=== PATIENT | male | born 2000 | race Caucasian/White ===

== ENCOUNTER 2020-04-15 19:28 | Emergency (ER) | payer BC ==
[2020-04-15] MEDS ORDERED: Sodium Chloride 0.9% 10 ML Syringe FLUSH PRN (20:49)
[2020-04-15] MEDS ORDERED: Sodium Chloride 0.9% 1,000 ML IV ONE (20:50)
--- NOTE | 2020-04-15 22:18 | EDM.PDOC ---
ED HPI GENERAL MEDICAL PROBLEM - General Chief Complaint: Abdominal Pain Stated Complaint: SOB; ABDOMINAL PAIN Time Seen by Provider: 04/15/20 20:30 Source of Information: Reports: Patient History Limitations: Reports: No Limitations - History of Present Illness INITIAL COMMENTS - FREE TEXT/NARRATIVE: 19-year-old male who reports on Thursday of this last week he has been having e pisodes of right anterior lateral chest and upper quadrant tightening and pain associated with activity and it seems to come and go. He was seen by a provider at the clinic and had blood tests performed and did show that he had slight AST/ALT elevation. He was set up for an outpatient abdominal ultrasound and he reports that he continued to have episodes of pain like this that were at a 7/10 at their worst. He missed this appointment on 04/13/2020 and did not get his ultrasound performed that things were improving. Beginning this morning he developed diarrhea and he has had about 30+ episodes of diarrhea today there has been no loose. He has had some nausea but no vomiting. He still has some diarrhea but it seems to be going away and he has intermittently had pains in his lower abdomen and he has had recurring episodes of this pain in his right chest and upper abdomen. He apparently reports that the pain has basically been going away and now the pain is down to 0/10 and it seems to have resolved like it has resolved on other occasions. Really no longer has any lower abdominal pain as well. That pain was a crampy type pain and it seemed to be worse when he was having diarrhea and then better afterward. No fevers or chills. No sweating. No dysuria or hematuria. He has not really been eating much today but he does report that he has been drinking liquids well today there is been no weakness or dizziness. No sweating. No sick contacts or exposures. Her no other associated signs or symptoms. There are no other modifying factors. Onset: Other (Right upper quadrant pain and right chest pain that has been ongoing and intermittent for about the past week. This morning with the onset of the diarrhea and that has pretty much begun to resolve.) Duration: Improving Location: Reports: Chest, Abdomen Quality: Reports: Pressure, Other (Cramping) Severity: Mild (to severe at times. To essentially gone at other times.) Improves with: Reports: None Worsens with: Reports: None Context: Reports: Other Associated Symptoms: Reports: Loss of Appetite, Nausea/Vomiting, Weakness Treatments CONSTRUCTION [employer]ODUCER: Reports: Other (see below) (Nothing.) Right Upper Abdomen Pain Score (Numeric/FACES): 4 - Related Data Allergies Allergy/AdvReac Type Severity Reaction Status Date / Time Penicillins Allergy Mild Hives Verified 04/15/20 19:42 Home Meds: Home Meds Fish Oil/[place]-3 Fatty Acids [Fish Oil 1,000 MG] 1 gm PO DAILY 04/15/20 [History] Past Medical History - Past Health History Medical/Surgical History: Denies Medical/Surgical History (No chronic medical problems. Surgical history as detailed below.) - Past Surgical History Musculoskeletal Surgical History: Reports: ORIF (Of left thumb.) Social & Family History - Tobacco Use Smoking Status *Q: Never Smoker - Alcohol Use Alcohol Use History: Yes Alcohol Use Frequency: Socially (Occasionally. 1-2 times a month.) - Living Situation & Occupation Living situation: Reports: Single Occupation: Student (At [employer].) ED ROS GENERAL - Review of Systems Review Of Systems: See Below Constitutional: Reports: No Symptoms HEENT: Reports: No Symptoms Respiratory: Reports: No Symptoms Cardiovascular: Reports: No Symptoms GI/Abdominal: Reports: Abdominal Pain, Diarrhea, Nausea : Denies: Dysuria, Hematuria Musculoskeletal: Reports: No Symptoms Skin: Reports: No Symptoms Neurological: Reports: No Symptoms. Denies: Headache, Weakness Hematologic/Lymphatic: Reports: No Symptoms Immunologic: Reports: No Symptoms ED EXAM, GI/ABD - Physical Exam Exam: See Below Exam Limited By: No Limitations General Appearance: Alert, WD/WN, No Apparent Distress Eyes: Bilateral: Normal Appearance (Sclera are anicteric), EOMI Ears: Normal External Exam, Hearing Grossly Normal Nose: Normal Inspection, Normal Mucosa, No Blood Throat/Mouth: Normal Inspection, Normal Oropharynx, Normal Voice, No Airway Compromise, Other (Moist mucous membranes) Head: Atraumatic, Normocephalic Neck: Normal Inspection, Supple, Non-Tender, Full Range of Motion Respiratory/Chest: No Respiratory Distress, Lungs Clear, Normal Breath Sounds, No Accessory Muscle Use, Chest Non-Tender Cardiovascular: Normal Peripheral Pulses, Regular Rate, Rhythm, No Murmur, No Rub GI/Abdominal Exam: Normal Bowel Sounds, Soft, Non-Tender, No Distention, No Abnormal Bruit, No Mass (Male) Exam: No Hernia Back Exam: Normal Inspection, Full Range of Motion Extremities: Normal Inspection, Normal Range of Motion, Non-Tender, No Pedal Edema, Normal Capillary Refill Neurological: Alert, Oriented, CN II-XII Intact, Normal Cognition, No Motor/Sensory Deficits Skin Exam: Warm, Dry, Intact, Normal Color, No Rash Lymphatic: No Adenopathy Course - Vital Signs Last Recorded V/S: Last Vital Signs Temp 36.8 C 04/15/20 19:48 Pulse 59 L 04/15/20 19:48 Resp 18 04/15/20 19:48 BP 121/66 04/15/20 19:48 Pulse Ox 100 04/15/20 19:48 - Orders/Labs/Meds Orders: Active Orders 24 hr Category Date Time Status UA W/MICROSCOPIC [URIN] Stat Lab 04/15/20 20:49 Ordered Peripheral IV Insertion Adult [OM.PC] Routine Oth 04/15/20 20:49 Ordered Labs: Laboratory Tests 04/15/20 04/15/20 04/15/20 Range/Units 21:05 21:05 21:05 WBC 7.8 (4.5-12.0) X10-3/uL RBC 4.89 (4.30-5.75) x10(6)uL Hgb 14.9 (13.5-17.8) g/dL Hct 42.5 (30.0-51.3) % MCV 86.9 (80-96) fL MCH 30.5 (27.7-33.6) pg MCHC 35.1 (32.2-35.4) g/dL RDW 12.0 (11.5-15.5) % Plt Count 279 (125-369) X10(3)uL MPV 7.9 (7.4-10.4) fL Neut % (Auto) 55.2 (46-82) % Lymph % (Auto) 34.1 (13-37) % [place] % (Auto) 9.0 (4-12) % Eos % (Auto) 1 (1.0-5.0) % Baso % (Auto) 1 (0-2) % Neut # (Auto) 4.3 (1.6-8.3) # Lymph # (Auto) 2.7 (0.6-5.0) # [place] # (Auto) 0.7 (0.0-1.3) # Eos # (Auto) 0.1 (0.0-0.8) # Baso # (Auto) 0.0 (0.0-0.2) # D-Dimer, Quantitative < 0.19 (0.0-0.59) mg/LFEU Sodium 140 (135-145) mmol/L Potassium 4.1 (3.5-5.3) mmol/L Chloride 102 (100-110) mmol/L Carbon Dioxide 29 (21-32) mmol/L BUN 12 (7-18) mg/dL Creatinine 1.1 (0.70-1.30) mg/dL Est Cr Clr Drug Dosing 100.99 mL/min Estimated GFR (MDRD) > 60 (>60) BUN/Creatinine Ratio 10.9 (9-20) Glucose 93 (80-116) mg/dL Calcium 9.4 (8.2-10.1) mg/dL Total Bilirubin 0.4 (0.1-1.2) mg/dL AST 33 H (5-25) IU/L ALT 59 H (12-36) U/L Alkaline Phosphatase 96 (56-112) IU/L C-Reactive Protein (0.5-0.9) mg/dL Total Protein 7.5 (6.0-8.0) g/dL Albumin 4.0 (3.2-4.5) g/dL Globulin 3.5 g/dL Albumin/Globulin Ratio 1.1 Lipase (73-393) U/L 04/15/20 Range/Units 21:05 WBC (4.5-12.0) X10-3/uL RBC (4.30-5.75) x10(6)uL Hgb (13.5-17.8) g/dL Hct (30.0-51.3) % MCV (80-96) fL MCH (27.7-33.6) pg MCHC (32.2-35.4) g/dL RDW (11.5-15.5) % Plt Count (125-369) X10(3)uL MPV (7.4-10.4) fL Neut % (Auto) (46-82) % Lymph % (Auto) (13-37) % [place] % (Auto) (4-12) % Eos % (Auto) (1.0-5.0) % Baso % (Auto) (0-2) % Neut # (Auto) (1.6-8.3) # Lymph # (Auto) (0.6-5.0) # [place] # (Auto) (0.0-1.3) # Eos # (Auto) (0.0-0.8) # Baso # (Auto) (0.0-0.2) # D-Dimer, Quantitative (0.0-0.59) mg/LFEU Sodium (135-145) mmol/L Potassium (3.5-5.3) mmol/L Chloride (100-110) mmol/L Carbon Dioxide (21-32) mmol/L BUN (7-18) mg/dL Creatinine (0.70-1.30) mg/dL Est Cr Clr Drug Dosing mL/min Estimated GFR (MDRD) (>60) BUN/Creatinine Ratio (9-20) Glucose (80-116) mg/dL Calcium (8.2-10.1) mg/dL Total Bilirubin (0.1-1.2) mg/dL AST (5-25) IU/L ALT (12-36) U/L Alkaline Phosphatase (56-112) IU/L C-Reactive Protein < 0.2 L (0.5-0.9) mg/dL Total Protein (6.0-8.0) g/dL Albumin (3.2-4.5) g/dL Globulin g/dL Albumin/Globulin Ratio Lipase 126 (73-393) U/L Meds: Medications Discontinued Medications Generic Name Dose Route Start Last Admin Trade Name Freq PRN Reason Stop Dose Admin Sodium Chloride 1,000 mls @ 999 mls/hr 04/15/20 20:50 Normal Saline IV 04/15/20 21:50 .BOLUS ONE Sodium Chloride 10 ml 04/15/20 20:49 Saline Flush FLUSH ASDIRECTED PRN Keep Vein Open - Re-Assessments/Exams Free Text/Narrative Re-Assessment/Exam: 04/15/20 22:10: The patient's blood tests were all reassuringly normal except for mildly elevated AST and ALT. A d-dimer was normal. The patient's abdomen was completely benign on exam and he is feeling improved. He is denying any pain at this time. I'm unsure why he is having the recurrent episodes of right upper quadrant and right chest pain. He appears to have had a possible viral illness leading to diarrhea today. That appears to be resolving. He does not appear to be dehydrated at this point. I have discussed further testing at this point with an of his abdomen and pelvis but he would want to forego that at this time and follow-up with his doctor. He was supposed to have had an ultrasound on Thursday but missed that. He would prefer to follow-up with his primary doctor and have any further workup through him. I will plan on discharging the patient now but I have implored him to have at least one day of rest and he should increase his fluid intake. Precautions and reasons to return to the emergency department were discussed with the patient while he was in the emergency department either detailed in the patient's discharge instructions. Departure - Departure Time of Disposition: 22:20 Disposition: Home, Self-Care 01 Condition: Good Clinical Impression: Abdominal pain of unknown etiology Diarrhea Qualifiers: Diarrhea type: unspecified type Qualified Code(s): R19.7 - Diarrhea, unspecified - Discharge Information Instructions: Abdominal Pain, Adult, [id number], Diarrhea, Adult, [id number] Referrals: PCP,None [Primary Care Provider] - Forms: ED Department Discharge Additional Instructions: Your blood tests were all reassuring except for mild elevation in 2 of your liver function tests. Apparently, you had this earlier this week and that is what led them to set you up for an ultrasound of your abdomen. I am unsure what what is causing these recurrent episodes of pain. Diarrhea may or may not be related to this pain. The diarrhea may be due to a viral type illness that is appearing to be resolving at this time. I would suggest that you rest. No school or practice or any strenuous activity for at least the next 24 hours. Increase your fluid intake. Avoid milk for the next 2-3 days. Back to the emergency department for her pain, fever, vomiting, blood in your stool or any other concerning sign or symptom. I did offer to do further testing tonight a CT scan of your abdomen and pelvis but you wanted to forego this at this time and you wanted to follow-up with your doctor to complete the workup about your recurrent right-sided abdominal and chest pain. Sepsis Event Note (ED) - Evaluation Sepsis Screening Result: No Definite Risk - Focused Exam Vital Signs: Vital Signs Temp Pulse Resp BP Pulse Ox 04/15/20 19:48 36.8 C 59 L 18 121/66 100 - My Orders Last 24 Hours: My Active Orders 04/15/20 20:49 UA W/MICROSCOPIC [URIN] Stat Peripheral IV Insertion Adult [OM.PC] Routine - Assessment/Plan Last 24 Hours: My Active Orders 04/15/20 20:49 UA W/MICROSCOPIC [URIN] Stat Peripheral IV Insertion Adult [OM.PC] Routine
== END 2020-04-15 22:33 | disposition home or self-care (01) ==
LOC: FB.ED 19:28
DX: R10.11 Right upper quadrant pain (principal); R19.7 Diarrhea, unspecified; R07.89 Other chest pain; R11.0 Nausea; Z88.0 Allergy status to penicillin
CPT/HCPCS: 36415; 80053; 83690; 85025; 85379; 86140; 99284

== ENCOUNTER 2020-12-05 14:35 | Emergency (ER) | payer BC ==
--- NOTE | 2020-12-05 15:36 | EDM.PDOC ---
ED HPI GENERAL MEDICAL PROBLEM - General Stated Complaint: PAIN Time Seen by Provider: 12/05/20 15:00 Source of Information: Reports: Patient History Limitations: Reports: No Limitations - History of Present Illness INITIAL COMMENTS - FREE TEXT/NARRATIVE: Patient presented to the ED because of dyspnea and wheezing after exercising. He also c/o epigastric pain that is worse after a meal. There is no nausea or vomiting, changes in bowel movements or urinary symptoms. - Related Data Allergies Allergy/AdvReac Type Severity Reaction Status Date / Time Penicillins Allergy Mild Hives Verified 04/15/20 19:42 Home Meds: Home Meds Fish Oil/[place]-3 Fatty Acids [Fish Oil 1,000 MG] 1 gm PO DAILY 04/15/20 [History] Albuterol Sulfate [Albuterol Sulfate Hfa] 2 puff IH Q4H PRN #1 hfa.aer.ad 12/05/20 [Rx] Omeprazole 20 mg PO DAILY #30 tablet. 12/05/20 [Rx] predniSONE [Prednisone] 20 mg PO DAILY #30 tablet 12/05/20 [Rx] Past Medical History - Past Health History Medical/Surgical History: Denies Medical/Surgical History (No chronic medical problems. Surgical history as detailed below.) - Past Surgical History Musculoskeletal Surgical History: Reports: ORIF (Of left thumb.) Social & Family History - Living Situation & Occupation Living situation: Reports: Single Occupation: Student (At [employer].) ED ROS GENERAL - Review of Systems Review Of Systems: See Below Constitutional: Reports: No Symptoms HEENT: Reports: No Symptoms Respiratory: Reports: Shortness of Breath Cardiovascular: Reports: Dyspnea on Exertion Endocrine: Reports: No Symptoms GI/Abdominal: Reports: Abdominal Pain : Reports: No Symptoms Musculoskeletal: Reports: No Symptoms Skin: Reports: No Symptoms ED EXAM, GENERAL - Physical Exam Exam: See Below Exam Limited By: No Limitations General Appearance: Alert, No Apparent Distress Eye Exam: Bilateral Eye: PERRL Ears: Normal External Exam, Normal Canal Nose: Normal Inspection, Normal Mucosa, No Blood Throat/Mouth: Normal Inspection, Normal Lips, Normal Teeth Head: Atraumatic, Normocephalic Neck: Normal Inspection, Supple, Non-Tender, Full Range of Motion Respiratory/Chest: No Respiratory Distress, Lungs Clear, Wheezing Cardiovascular: Normal Peripheral Pulses, Regular Rate, Rhythm, No Edema, No Gallop, No JVD, No Murmur GI/Abdominal: Normal Bowel Sounds, Soft, Non-Tender, No Organomegaly, No Distention, No Abnormal Bruit Back Exam: Normal Inspection, Full Range of Motion Extremities: Normal Inspection, Normal Range of Motion, Non-Tender Neurological: Alert, Oriented Departure - Departure Time of Disposition: 15:35 Disposition: Home, Self-Care 01 Condition: Good Clinical Impression: GERD (gastroesophageal reflux disease), Exercise-induced asthma - Discharge Information Prescriptions: Albuterol Sulfate [Albuterol Sulfate Hfa] 2 puff IH Q4H PRN #1 hfa.aer.ad PRN Reason: Shortness Of Breath Omeprazole 20 mg PO DAILY #30 tablet. predniSONE [Prednisone] 20 mg PO DAILY #30 tablet Instructions: Food Choices for Gastroesophageal Reflux Disease, Adult, [id number], Exercise-Induced Bronchoconstriction, Adult Additional Instructions: Please read discharge instructions on acid reflux/GERD and bronchospasm Omeprazole 20 mg daily for acid reflux Albuterol inhaler, 2 puffs every 4-6 hours as needed for wheezing and shortness of breath Prednisone 20 mg daily for pain in your chest. It also helps with breathing You need to find a primary clinic where you can have follow up. The ED don't do followup on patient's medical issues.
== END 2020-12-05 16:00 | disposition home or self-care (01) ==
LOC: FB.ED 14:35
DX: J45.909 Unspecified asthma, uncomplicated (principal); K21.9 Gastro-esophageal reflux disease without esophagitis; Z88.0 Allergy status to penicillin
CPT/HCPCS: 99284